=== PATIENT | female | born 1950 | race Caucasian/White ===

== ENCOUNTER 2023-11-21 10:59 | Outpatient (CLI) | payer OTHER, SELFPAY ==
--- NOTE | 2023-11-21 11:00 | MM_ITS ---
WS: [id number] SCREENING DIGITAL BREAST TOMOSYNTHESIS MAMMOGRAM WITH CAD HISTORY: SCREENING COMPARISON: None available. Bilateral CC and MLO with tomosynthesis and synthetic mammography submitted. Computer aided detection analyzed. Breast composition: There are scattered areas of fibroglandular density. There is a well-circumscribe d mass measuring 4 mm anterior RIGHT breast at 9:00. This may be a lymph node but a definite fatty hi lum is not identified. There is an additional asymmetry measuring 8 x 4 mm in the posterior medial LE FT breast near 10:00 which needs to be further evaluated. This is very poorly visualized and nearly i sodense to the remaining breast. IMPRESSION: MM/[place] [id number] BI-RADS: 0-Incomplete: Need additional imaging evaluation FOLLOW UP: Need Additional Imaging RIGHT breast: Spot compression views (CC and MLO). True ML. Ultrasound to follo w if abnormality persists. LEFT breast: Spot compression views (CC and MLO). True ML. Ultrasound to follow if abnormality persists.
== END 2023-11-21 11:00 | disposition home or self-care (01) ==
LOC: MOBLMAM 11:03
PROVIDERS: PCP Nurse Practitioner Family; Visit Provider Nurse Practitioner Family
DX: Z12.31 Encounter for screening mammogram for malignant neoplasm of breast (principal); R92.323 Mammographic fibroglandular density, bilateral breasts; N63.15 Unspecified lump in the right breast, overlapping quadrants; N64.89 Other specified disorders of breast
CPT/HCPCS: 77063; 77067